=== PATIENT | male | born 1955 | race Caucasian/White ===

== ENCOUNTER 2018-12-21 12:44 | Day surgery (SDC) | payer BC ==
[~2018-12-21] VITALS: Ht 185.4 cm; Wt 123.6 kg
[~2018-12-21 12:44] MED LIST: ERGO400 PO; GABA300; LANS30EC PO; NAPR220; OMEP10ER PO; PANT40
== END 2018-12-21 14:37 | disposition home or self-care (01) ==
LOC: ORSCSDS 12:44
PROVIDERS: Internal Medicine Gastroenterology
PROC: 0DB58ZX Excision of Esophagus, Via Natural or Artificial Opening Endoscopic, Diagnostic (ICD-10-PCS; principal; 2018-12-21 14:00)
DX: K22.70 Barrett's esophagus without dysplasia (principal); K21.9 Gastro-esophageal reflux disease without esophagitis; G47.30 Sleep apnea, unspecified; J45.909 Unspecified asthma, uncomplicated; E78.5 Hyperlipidemia, unspecified; F17.210 Nicotine dependence, cigarettes, uncomplicated; E66.9 Obesity, unspecified; Z68.35 Body mass index [BMI] 35.0-35.9, adult; Z79.899 Other long term (current) drug therapy
CPT/HCPCS: 87081; 88305; J2250; J7120

== ENCOUNTER → 2019-09-28 | Outpatient (CLI) | payer BC | END | disposition home or self-care (01) | LOC: PLD 14:15 → LAB SHORT 14:15 | DX: D22.5 Melanocytic nevi of trunk (principal) | CPT/HCPCS: 88305 ==

== ENCOUNTER → 2020-07-23 | Outpatient (CLI) | payer BC | LOC: PLD 11:02 → LAB SHORT 11:02 | DX: L82.1 Other seborrheic keratosis (principal) | CPT/HCPCS: 88305 ==

== ENCOUNTER 2022-01-14 12:32 | Day surgery (SDC) | payer BC ==
[~2022-01-14] VITALS: Ht 185.4 cm; Wt 120.3 kg
[2022-01-14] MEDS ORDERED: MELO7.5 (13:07)
[2022-01-14] MEDS ORDERED: Robaxin750 MG PO ×2 (13:23→13:25)
== END 2022-01-14 14:50 | disposition home or self-care (01) ==
LOC: ORSCSDS 12:32
PROVIDERS: Internal Medicine Gastroenterology
PROC: 0DBK8ZX Excision of Ascending Colon, Via Natural or Artificial Opening Endoscopic, Diagnostic (ICD-10-PCS; principal; 2022-01-14 13:45)
PROC: 0DBN8ZX Excision of Sigmoid Colon, Via Natural or Artificial Opening Endoscopic, Diagnostic (ICD-10-PCS; principal; 2022-01-14 13:45)
DX: Z12.11 Encounter for screening for malignant neoplasm of colon (principal); Z86.010 Personal history of colon polyps; D12.2 Benign neoplasm of ascending colon; K63.5 Polyp of colon; K57.30 Diverticulosis of large intestine without perforation or abscess without bleeding; G47.33 Obstructive sleep apnea (adult) (pediatric); E66.01 Morbid (severe) obesity due to excess calories; Z68.36 Body mass index [BMI] 36.0-36.9, adult; K21.9 Gastro-esophageal reflux disease without esophagitis; Z79.899 Other long term (current) drug therapy
CPT/HCPCS: 88305; J2704; J7120

== ENCOUNTER 2023-10-25 11:07 | Day surgery (SDC) | payer OTHER ==
[~2023-10-25] VITALS: Ht 185.4 cm; Wt 119.5 kg
[~2023-10-25 11:07] MED LIST changes: +ALEVE220 MG; +CYCLOBENZAPRINE5 MG; +Flomax0.4 MG PO; +IBUP600 PO; +MELO7.5; +ONDA4ODT MM; +Robaxin750 MG PO; +Roxicodone5 MG PO; +Vitamin D1000 UNI1
[2023-10-25 12:50] VITALS: BP 136/81
== END 2023-10-25 12:38 | disposition home or self-care (01) ==
LOC: ORSCSDS 11:07
PROVIDERS: Internal Medicine Gastroenterology
PROC: 0DB58ZX Excision of Esophagus, Via Natural or Artificial Opening Endoscopic, Diagnostic (ICD-10-PCS; principal; 2023-10-25 12:30)
DX: K22.70 Barrett's esophagus without dysplasia (principal); G47.33 Obstructive sleep apnea (adult) (pediatric); F17.210 Nicotine dependence, cigarettes, uncomplicated; Z79.899 Other long term (current) drug therapy
CPT/HCPCS: 88305; J2704; J7120